=== PATIENT | female | born 1940 | race Caucasian/White ===

== ENCOUNTER 2024-05-28 10:45 | Emergency (ER) | payer MEDICARE, OTHER ==
[2024-05-28 15:04] VITALS: BP 155/88; PULSE 94
== END 2024-05-28 12:00 | disposition home or self-care (01) ==
LOC: CC.ED 10:45
DX: S20.211A Contusion of right front wall of thorax, initial encounter (principal); I10 Essential (primary) hypertension; E03.9 Hypothyroidism, unspecified; Z79.899 Other long term (current) drug therapy; W19.XXXA Unspecified fall, initial encounter
CPT/HCPCS: 71111; 99283